=== PATIENT | male | born 1965 | race Caucasian/White ===

== ENCOUNTER 2018-10-22 15:13 | Day surgery (SDC) | payer OTHER ==
[2018-10-21 12:32] LABS: MICROSCOPIC NOT IND
[~2018-10-22] VITALS: Ht 188 cm; Wt 118.4 kg
[~2018-10-22 15:13] MED LIST: LEVO75TA5 PO
[2018-10-22 15:32] VITALS: BP 133/86
[2018-10-22] MEDS ORDERED: LACTATED RINGERS 1,000 ML IV SCH (15:38)
[2018-10-22] MEDS ORDERED: FENTANYL PF 100 MCG/2ML ONE ×4 (17:47→20:31)
[2018-10-22] MEDS ORDERED: MIDAZOLAM 1 MG/ML, 2ML ONE ×3 (17:47→18:56)
[2018-10-22] MEDS ORDERED: BUPIVACAINE/EPI 0.5% 1:200K ONE (18:36)
[2018-10-22] MEDS ORDERED: BUPIVACAINE/PF 0.5% ONE (18:36)
[2018-10-22] MEDS ORDERED: DEXAMETHASONE 4 MG/ML, 1ML ONE (19:25)
[2018-10-22] MEDS ORDERED: ONDANSETRON 2MG/ML, 2ML ONE (19:25)
[2018-10-22] MEDS ORDERED: CEFAZOLIN 1,000 MG ONE (19:25)
[2018-10-22] MEDS ORDERED: PROPOFOL 10 MG/ML, 20ML ONE (19:25)
[2018-10-22] MEDS ORDERED: hydrALAzine 20 MG/ML, 1ML IV PRN (19:30)
[2018-10-22] MEDS ORDERED: LABETALOL 5MG/ML, 20ML IV PRN (19:30)
[2018-10-22] MEDS ORDERED: KETOROLAC 30 MG/1 ML IV PRN (19:30)
[2018-10-22] MEDS ORDERED: DIAZEPAM 5 MG/ML, 2ML IVPush PRN (19:30)
[2018-10-22] MEDS ORDERED: HYDROmorphone 2 MG/ML, 1ML IVPush PRN (19:30)
[2018-10-22] MEDS ORDERED: OXYcodone 5 MG/5 ML ORAL.SOL UDC PO PRN (19:30)
[2018-10-22] MEDS ORDERED: FENTANYL PF 100 MCG/2ML IV PRN (19:30)
[2018-10-22] MEDS ORDERED: MEPERIDINE/PF 25MG/0.5ML IVPush PRN (19:30)
[2018-10-22] MEDS ORDERED: ACETAMINOPHEN 325 MG TABLET PO PRN (19:30)
[2018-10-22] MEDS ORDERED: PROMETHAZINE 25 MG/ML, 1ML IV PRN (19:30)
[2018-10-22] MEDS ORDERED: ALBUTEROL SULFATE 2.5 MG/3 ML NPPB PRN (19:30)
[2018-10-22] MEDS ORDERED: OPIUM/BELLADONNA SUPP.RECT 16.2-60 MG ONE (20:13)
[2018-10-22] MEDS ORDERED: BACITRACIN ZINC OINT 500U/GM, 0.9 GM ONE (20:22)
[2018-10-22] MEDS ORDERED: GEMCITABINE HCL 2,000 MG in SYRINGE 1 EA IV ONE (20:30)
[2018-10-22] MEDS ORDERED: MEPERIDINE/PF 25MG/ML,1ML ONE (20:31)
[2018-10-22] MEDS ORDERED: HYDROmorphone 2 MG/ML, 1ML ONE (20:32)
[2018-10-22] MEDS ORDERED: OXYcodone 5 MG/5 ML ORAL.SOL UDC ONE (20:32)
[2018-10-22] MEDS ORDERED: OMNIPAQUE 350 MG/ML, 50 ML BOTTLE IV ONE (20:41)
[2018-10-22 23:36] VITALS: BP 112/59
== END 2018-10-22 23:45 | disposition home or self-care (01) ==
LOC: OR 15:13 → 4NOR 16:56 → OR 23:45
PROVIDERS: ATTEND Urology
DX: C67.9 Malignant neoplasm of bladder, unspecified (principal); N35.011 Post-traumatic bulbous urethral stricture; N35.013 Post-traumatic anterior urethral stricture; E03.9 Hypothyroidism, unspecified; K21.9 Gastro-esophageal reflux disease without esophagitis; J45.909 Unspecified asthma, uncomplicated; E78.00 Pure hypercholesterolemia, unspecified; Z79.890 Hormone replacement therapy; Z79.899 Other long term (current) drug therapy; Z88.0 Allergy status to penicillin; Z87.891 Personal history of nicotine dependence
CPT/HCPCS: 51610; 52234; 52276; 74450; 81003; 87086; 88307; C1769; J0690; J1100; J2175; J2250; J2405; J2704; J3010; J7120; J9201; Q9967; 74420; G0378